=== PATIENT | male | born 1985 | race American Indian/Alaskan Native ===

== ENCOUNTER 2018-06-29 14:18 | Emergency (ER) | payer MEDICAID ==
[2018-06-29 14:37] VITALS: RESP 18
--- NOTE | 2018-06-29 16:07 | ED PDOC ---
HPI: Psych/Substance Abuse Time Seen by Provider: 06/29/18 14:41 Chief Complaint (Nursing): Substance Abuse Chief Complaint (Provider): Substance abuse Additional Complaint(s): Pt BIBA for intoxication and bizarre behavior. Past Medical History Reviewed: Unable To Obtain Vital Signs: Last Vital Signs Temp 99.7 F H 06/29/18 14:36 Pulse 121 H 06/29/18 14:36 Resp 18 06/29/18 14:36 BP 150/86 06/29/18 14:36 Pulse Ox 94 L 06/29/18 14:36 Primary Care Provider: FAMILY PROVIDER,NO - Family History Family History: States: Unknown Family Hx - Allergies Allergies/Adverse Reactions: Allergies Allergy/AdvReac Type Severity Reaction Status Date / Time No Known Allergies Allergy Verified 06/29/18 14:24 Review of Systems Review Of Systems: ROS cannot be obtained secondary to pt's inabilty to answer questions. Physical Exam - Reviewed Nursing Documentation Reviewed: Yes Vital Signs Reviewed: Yes - Physical Exam Appears: Positive for: Non-toxic Head Exam: Positive for: ATRAUMATIC, NORMAL INSPECTION Skin: Positive for: Normal Color, Warm, Dry Cardiovascular/Chest: Positive for: Regular Rate, Rhythm Respiratory: Positive for: Normal Breath Sounds Neurological/Psych: Positive for: Awake, Alert, Mood/Affect (Agitated). Negative for: Facial Droop - ECG O2 Sat by Pulse Oximetry: 94 Medical Decision Making Medical Decision Makin yo male with intoxication and agitation. - 1:1 observation - restraints - Haldol - Ativan - accucheck - EtOH level - UDS Disposition - Clinical Impression Clinical Impression: Alcohol intoxication - Disposition Disposition: Transfer of Care Disposition Time: 17:00 Condition: STABLE Forms: [facility] [facility] ([place]) Patient Signed Over To: Nenita Vasquez Handoff Comments: Pending sobriety and Crisis evaluation.
[2018-06-29 16:15] LABS: BARBITURATES, UR NEGATIVE (NEGATIVE); BENZODIAZEPINES, UR NEGATIVE (NEGATIVE); OPIATES, UR NEGATIVE (NEGATIVE); PHENCYCLIDINE, UR NEGATIVE (NEGATIVE)
--- NOTE | 2018-06-29 17:15 | ED PDOC ---
- ECG O2 Sat by Pulse Oximetry: 94 - Progress ED Course And Treament: 510p Rec'd endorsement from Dr Stroud. Pt with acute psychosis, likely alcohol/drug induced. Required medication and restraint. Sleeping at this time. Pending sobriety and crisis eval (~630p) 8p Pt arousable and nonfocal but still sleepy. When woken up, goes back to sleep. 10p Alert and awake. Requesting to be discharged. Pending Crisis eval 11p Evaluated by NASIMA eMade who dw psychiatrist. Pt stable for discharge. Disposition - Clinical Impression Clinical Impression: Alcohol intoxication, Adjustment disorder, Grief reaction - POA Present On Arrival: None - Disposition Referrals: [facility] [Outside] Disposition: Routine/Home Disposition Time: 23:00 Condition: IMPROVED Instructions: Alcohol Abuse and Alcoholism (DC), Dealing With , Adult
[2018-06-30 00:45] VITALS: TEMP 98.6
[2018-06-30 00:46] VITALS: BP 110/52; PULSE 71
[2018-07-03 20:18] VITALS: O2SAT 94
== END 2018-06-30 | disposition home or self-care (01) ==
LOC: H.ER 14:18
DX: F10.129 Alcohol abuse with intoxication, unspecified (principal); F43.20 Adjustment disorder, unspecified; Y90.8 Blood alcohol level of 240 mg/100 ml or more
CPT/HCPCS: 80320; 80324; 80345; 80346; 80349; 80353; 80358; 80361; 82948; 83992; 96372; 99285; J1630; J2060